=== PATIENT | male | born 1970 | race Two or more races ===

== ENCOUNTER 2023-08-06 09:51 | Emergency (ER) | payer OTHER ==
[~2023-08-06] VITALS: Ht 165.1 cm; Wt 68.5 kg
[2023-08-06] MEDS ORDERED: HYDROmorphone HCL 2 MG/ML VL/or syr IV ONE (11:00)
[2023-08-06] MEDS ORDERED: ETOMIDATE (2MG/ML) 20ML VIAL IV ONE (11:00)
[2023-08-06] MEDS ORDERED: ONDANSETRON HCL 4 MG/2 ML VIAL IV ONE (11:00)
[2023-08-06 11:40] VITALS: PULSE 62; RESP 16; TEMP 98.9; O2SAT 95
[2023-08-06 11:42] VITALS: BP 155/82; RESP 16
[2023-08-06 11:53] VITALS: PULSE 63
[2023-08-06] MEDS ORDERED: HYDR-4902 PO (13:41)
== END 2023-08-06 14:10 | disposition home or self-care (01) ==
LOC: EDBD 09:51 → ER 09:51
DX: S52.121A Displaced fracture of head of right radius, initial encounter for closed fracture (principal); S53.104A Unspecified dislocation of right ulnohumeral joint, initial encounter; W19.XXXA Unspecified fall, initial encounter; Y93.89 Activity, other specified; Y92.89 Other specified places as the place of occurrence of the external cause; Y99.8 Other external cause status
CPT/HCPCS: 24600; 73070; 73090; 96374; 96375; 99152; 99153; 99285; J1170; J2405